=== PATIENT | female | born 1990 | race Two or more races ===

== ENCOUNTER 2023-06-23 16:47 | Emergency (ER) | payer BC, OTHER ==
[~2023-06-23] VITALS: Ht 152.4 cm; Wt 76.3 kg
[~2023-06-23 16:47] MED LIST: NITR-87 PO; ONDA-133 PO; PREN1TAB71 OR; TRAM50TA2 PO
[2023-06-23 17:30] VITALS: BP 119/79; PULSE 80; RESP 16; TEMP 98.1; O2SAT 97
[2023-06-23] MEDS ORDERED: CEPH500T PO (17:41)
[2023-06-23] MEDS ORDERED: HYDR50CA PO (17:41)
[2023-06-23] MEDS ORDERED: TRIA0.02 TOP (17:41)
[2023-06-23] MEDS ORDERED: cefTRIAXone SOD 1,000 MG VL IM ONE (17:45)
[2023-06-23] MEDS ORDERED: DexAMETHasone SOD PHOS 10MG/1ML VIAL INJ IM ONE (17:45)
== END 2023-06-23 18:04 | disposition home or self-care (01) ==
LOC: ER 16:47
DX: S80.862A Insect bite (nonvenomous), left lower leg, initial encounter (principal); S80.861A Insect bite (nonvenomous), right lower leg, initial encounter; T78.40XA Allergy, unspecified, initial encounter; W57.XXXA Bitten or stung by nonvenomous insect and other nonvenomous arthropods, initial encounter; Y93.89 Activity, other specified; Y92.89 Other specified places as the place of occurrence of the external cause; Y99.8 Other external cause status
CPT/HCPCS: 96372; 99284; J0696; J1100